=== PATIENT | male | born 1970 | race Asian ===

== ENCOUNTER 2019-11-23 04:37 | Inpatient (IN) ==
[2019-11-23] MEDS ORDERED: ONDANSETRON INJ 2 MG/ML 2 ML VIAL IV STA (05:10)
[2019-11-23] MEDS ORDERED: KETOROLAC 30 MG/ML VIAL IV STA (05:10)
[2019-11-23] MEDS ORDERED: SODIUM CHLORIDE 0.9% 1000ML 1,000 ML IV SCH (05:15)
--- NOTE | 2019-11-23 05:15 | Emergency Department Note ---
Impression & Plan Perforated viscus ED Provider Note NAME: SHANEKA VAIL AGE: 49 SEX: M ARRIVES VIA: Family Vehicle INFORMANT: Patient and life partner ED PROVIDER(S): Tricia Obregon DO CHIEF COMPLAINT: Right lower quadrant abdominal pain and suprapubic abdominal pain PLAN: Disposition: Awaiting evaluation by general surgery-Dr. Martino Condition: Guarded MEDICAL DECISION MAKING: This is a 49-year-old male patient who presents to the emergency department with severe suprapubic abdominal pain, right lower quadrant abdominal pain and right flank pain. The patient's pain started fairly suddenly while playing on his phone. There was some associated nausea but no vomiting. Laboratory studies were fairly unremarkable. CT scan, however, showed evidence of intraperitoneal free air and probable perforated viscus. There was significant gastric wall thickening and stat rad felt this most likely represented a perforated gastric ulcer. I discussed the case with Dr. Martino who will evaluate the patient for further care. Triage Nursing notes reviewed and agree them. Additional history obtained from the patient's partner who is at the bedside and acts as a vegetable trimmer Vital Signs: reviewed and remarkable for hypertension Differential diagnosis: Constipation, small bowel obstruction, pyelonephritis, ureteral colic, ER treatment provided: IV Zofran, IV normal saline solution, IV Toradol, IV Dilaudid, IV Pipracil and/tazobactam Diagnostics interpreted by me: Cardiac Monitoring: Normal sinus rhythm at a rate of 72 Laboratory studies: See below Imaging studies:Per STATRAD CT Abdomen/Pelvis: The liver, spleen, pancreas and gallbladder are normal. The stomach is mildly distended and there is some thickening in the gastric antrum without pneumatosis or focal discontinuity in the gastric wall. Small bowel loops, and appendix appear normal. Adrenals, kidneys, ureters and bladder appear normal. Prostate appears normal. Vascular structures are normal in caliber. Studies positive for free peritoneal air. This is most confluent adjacent to the anterior stomach and liver. Impression: Pre-peritoneal air suggesting perforated viscus. With gastric thickening and focal adjacent air this is likely related to a perforated gastric ulcer Consultation(s): Dr. Martino HPI: 49/M arrives for evaluation of sudden onset of suprapubic abdominal pain and right lower quadrant abdominal pain. [The patient was sitting comfortably playing on his phone when he developed suprapubic abdominal pain and right lower quadrant abdominal pain. Patient also had some associated nausea. He denies ever having pain like this in the past. Patient describes eating pork, yellow peas, and mushrooms around 8 PM last evening and feeling normal afterwards. The pain came on fairly suddenly and was associated with nausea but no vomiting. Most of the history was obtained from the patient's partner who was acting as a vegetable trimmer. He explains that approximately 1 week ago, the patient developed some right sided posterior leg pain for which he started taking a multivitamin. The patient's partner explains that the patient suffers from chronic constipation and has been taking something for it but is unsure what he has been taking. ROS: See above HPI for pertinent positives & negatives. A total of 10 systems reviewed and were otherwise negative. PAST MEDICAL HISTORY:None PAST SURGICAL HISTORY:Patient denies any surgical history FAMILY HISTORY:Patient denies any family history SOCIAL HISTORY:Lives with life partner HOME MEDICATIONS:Multivitamin ALLERGIES:nkda VITALS:See Below PHYSICAL EXAMINATION: HEENT: Head - normocephalic and atraumatic Pupils are equal, round, and reactive to light. Extraocular eye muscles are intact, and sclera are anicteric. Nose - moist nasal mucosa without discharge. Mouth - moist buccal mucosa. Oropharynx is nonerythematous and there is no tonsillar exudate or edema noted. Neck: Supple; no cervical lymphadenopathy. Heart: Regular rate and rhythm. There is a normal S1 and S2 with no murmurs, clicks, or gallops appreciated. Lungs: Clear to auscultation bilaterally with no wheezes, rales, or rhonchi. Abdomen: Moderately distended, pain with palpation in the right lower quadrant, right CVA, and right suprapubic region. There is no guarding, rigidity or rebound. There were normal bowel sounds. Extremities: No evidence of cyanosis, clubbing, or edema. There are easily palpable peripheral pulses. Skin: warm and dry with good turgor and no rashes. ED COURSE: 505: The patient was evaluated in room C 11. A complete history and physical was performed. An order was placed for continuous cardiac monitoring. The patient was in a normal sinus rhythm at a rate of 75. An IV lock was initiated and labs were drawn as above. The patient was given 4 mg of IV Zofran, 1 L of normal saline solution, 30 mg of IV Toradol. The patient will go for CT scan of the abdomen/pelvis. 550: When the patient returned from CAT scan, he was feeling more comfortable. I reviewed some of the preliminary lab tests with the patient. 600: I reviewed the CAT scan results with the patient but I was not certain that the patient or his partner were fully understanding these results and therefore I opted to use the interpreting service. 620: With the help of the bulk pigment reducer, I was able to fully explain the results of the CAT scan laboratory studies with the patient and his partner. The patient did request additional pain meds. He was given 0.5 mg of IV Dilaudid and he was started on Pipracillin and/tazobactam. I have personally spent greater than 45 minutes of critical care time in the direct management of this patient. This includes bedside care, interpretation of diagnostic studies, and testing, discussion with consultants, patient, and family members, and other required patient management activities. This 45 minutes is in excess of all separately billable procedures. Tricia Obregon, DO Past Med/Surg History Social History Feels Safe at Home: Yes Smoking Status: Never smoker Allergies Allergies Allergy/AdvReac Type Severity Reaction Status Date / Time No Known Allergies Allergy Unverified 11/23/19 04:52 Home Meds Home Medications Medication Instructions Recorded Confirmed multivitamin 1 tab PO DAILY 11/23/19 11/23/19 Results & Data (ED) Vital Signs Vital Signs - 24 hr 11/23/19 04:43 11/23/19 05:24 11/23/19 05:47 Temperature 36.7 C Temperature Source Oral Pulse Rate 73 Pulse Rate [Finger] 65 68 Respiratory Rate 20 28 H 20 Respiratory Effort / Characteristics Non-Labored Respiratory Depth Normal Blood Pressure 164/107 H Blood Pressure [Left Arm] 132/93 146/97 H Blood Pressure Mean 126 Blood Pressure Mean [Left Arm] 106 113 Blood Pressure Position Sitting Pulse Oximetry 100 100 99 Oxygen Delivery Method Room Air Room Air Room Air Sepsis Recent Fever Within 48 Hours No Sepsis Action Taken by Nursing No Action Required 11/23/19 06:29 Temperature Temperature Source Pulse Rate Pulse Rate [Finger] 76 Respiratory Rate 20 Respiratory Effort / Characteristics Non-Labored Spontaneous Respiratory Depth Normal Blood Pressure Blood Pressure [Left Arm] 126/78 Blood Pressure Mean Blood Pressure Mean [Left Arm] 94 Blood Pressure Position Pulse Oximetry 98 Oxygen Delivery Method Room Air Sepsis Recent Fever Within 48 Hours Sepsis Action Taken by Nursing Laboratory Data Result diagrams: 11/23/19 05:15 11/23/19 05:15 Lab Results 11/23/19 11/23/19 11/23/19 Range/Units 05:05 05:15 05:15 WBC 12.67 H (4.8-10.8) K/uL RBC 5.09 (4.7-6.1) M/uL Hgb 15.8 (14.0-18.0) g/dL Hct 46.8 (42-52) % MCV 91.9 (80-100) fL MCH 31.0 (25-34) pg MCHC 33.8 (32-36) g/dL RDW Std Deviation 41.8 (36.4-46.3) fL RDW Coeff of Raven 12.4 (11.5-14.5) % Plt Count 226 (130-400) K/uL MPV 11.2 H (7.4-10.4) fL Immature Gran % (Auto) 0.2 % Neut % (Auto) 79.2 % Lymph % (Auto) 12.2 % [place] % (Auto) 7.7 % Eos % (Auto) 0.5 % Baso % (Auto) 0.2 % Immature Gran # (Auto) 0.03 H (0.00-0.02) K/uL Neut # (Auto) 10.04 H (1.4-6.5) K/uL Lymph # (Auto) 1.54 (1.2-3.4) K/uL [place] # (Auto) 0.98 H (0.11-0.59) K/uL Eos # (Auto) 0.06 (0-0.5) K/uL Baso # (Auto) 0.02 (0-0.2) K/uL Sodium 137 (136-145) mmol/L Potassium 4.3 (3.5-5.1) mmol/L Chloride 105 (98-107) mmol/L Carbon Dioxide 28 (21-32) mmol/L Anion Gap 4.0 (3-11) BUN 30 H (7-18) mg/dl Creatinine 1.28 (0.6-1.4) mg/dl Est Cr Clr Drug Dosing 57.3 ml/min Est GFR ( Amer) 75.7 Est GFR (Non-Af Amer) 65.3 BUN/Creatinine Ratio 23.3 H (10-20) Glucose 124 H (70-99) mg/dl Calcium 9.3 (8.5-10.1) mg/dl Total Bilirubin 0.4 (0.2-1) mg/dl AST 34 (15-37) U/L ALT 23 (12-78) U/L Alkaline Phosphatase 74 (45-117) U/L Total Protein 8.3 H (6.4-8.2) gm/dl Albumin 3.6 (3.4-5.0) gm/dl Globulin 4.7 H (2.5-4.0) gm/dl Albumin/Globulin Ratio 0.8 L (0.9-2) Lipase 233 (73-393) U/L Urine Color Dark Yellow Urine Appearance Turbid A (Clear) Urine pH 5.0 (4.5-7.5) Ur Specific [place] 1.034 H (1.000-1.030) Urine Protein 1+ H (Negative) Urine Glucose (UA) Negative (Negative) Urine Ketones Trace H (Negative) Urine Blood Negative (Negative) Urine Nitrite Negative (Negative) Urine Bilirubin Negative (Negative) Urine Urobilinogen Negative (Negative) Ur Leukocyte Esterase Negative (Negative) Urine WBC (Auto) 1-5 (0-5) /hpf Urine RBC (Auto) 10-30 H (0-4) /hpf U Hyaline Cast (Auto) 5-10 H (0-5) /lpf U Epithel Cells (Auto) 10-20 H (0-5) /lpf Urine Bacteria (Auto) Negative (Negative) Urine Crystals Not Reportable Calcium Oxalate Crystal Present A (None Prsent) Administered Medications Piperacillin Sod/Tazobactam Sod (Zosyn) 4.5 gm in 120 mls @ 240 mls/hr IV NOW ONE Stop: 11/23/19 06:50 Last Admin: 11/23/19 06:28 Dose: 240 mls/hr Documented by: [id number] Discontinued Medications Hydromorphone HCl (Dilaudid) 0.5 mg IV NOW STA Stop: 11/23/19 06:22 Last Admin: 11/23/19 06:26 Dose: 0.5 mg Documented by: [id number] Sodium Chloride (Nss 1000ml) 1,000 mls @ 999 mls/hr IV .Q1H1M [place]ILL Stop: 11/23/19 06:15 Last Infusion: 11/23/19 06:22 Dose: 0 mls/hr Documented by: [id number] Admin: 11/23/19 05:16 Dose: 999 mls/hr Documented by: [id number] Ketorolac Tromethamine (Toradol) 30 mg IV NOW STA Stop: 11/23/19 05:11 Last Admin: 11/23/19 05:16 Dose: 30 mg Documented by: [id number] Ondansetron HCl (Zofran) 4 mg IV NOW STA Stop: 11/23/19 05:11 Last Admin: 11/23/19 05:16 Dose: 4 mg Documented by: [id number] Discharge Plan Visit Data Chief Complaint: Abdominal Pain Stated Complaint: ABD PAIN ED Provider: Tricia Obregon Discharge Problem: Perforated viscus Forms Stand Alone Forms: [facility] Prescriptions Prescriptions: No Action multivitamin Tablet 1 tab PO DAILY RF: 0
[2019-11-23 05:23] LABS: Basophils # (auto) 0.02 K/uL (0-0.2); Basophils % (auto) 0.2 %; Eosinophils # (auto) 0.06 K/uL (0-0.5); Eosinophils % (auto) 0.5 %; Hematocrit (blood only) 46.8 % (42-52); Hemoglobin 15.8 g/dL (14.0-18.0); Immature Granulocytes # (auto) 0.03 K/uL (0.00-0.02); Immature Granulocytes % (auto) 0.2 %; Lymphocytes # (auto) 1.54 K/uL (1.2-3.4); Lymphocytes % (auto) 12.2 %; Mean Corpuscular Hgb Conc 33.8 g/dL (32-36); Mean Corpuscular Volume 91.9 fL (80-100); Mean Platelet Volume 11.2 fL (7.4-10.4); Monocytes # (auto) 0.98 K/uL (0.11-0.59); Monocytes % (auto) 7.7 %; Neutrophils # (auto) 10.04 K/uL (1.4-6.5); Neutrophils % (auto) 79.2 %; Platelet Count 226 K/uL (130-400); RDW Coefficient of Variation 12.4 % (11.5-14.5); RDW Standard Deviation 41.8 fL (36.4-46.3); Red Blood Count 5.09 M/uL (4.7-6.1); White Blood Count 12.67 K/uL (4.8-10.8)
[2019-11-23 05:33] LABS: Appearance Urine Turbid (Clear); Bacteria Urine Automated Negative (Negative); Bilirubin Urine Negative (Negative); Blood Urine Negative (Negative); Color Urine Dark Yellow; Glucose Urine UA Negative (Negative); Ketones Urine Trace (Negative); Leukocyte Esterase Urine Negative (Negative); Nitrite Urine Negative (Negative); Protein Urine 1+ (Negative); Specific Gravity Urine 1.034 (1.000-1.030); Urobilinogen Urine Negative (Negative)
[2019-11-23 05:41] LABS: Albumin Level 3.6 gm/dl (3.4-5.0); BUN Creatinine Ratio 23.3 (10-20); Calcium 9.3 mg/dl (8.5-10.1); Creatinine Clr Calc Pharmacy 57.3 ml/min; Est GFR (African American) 75.7; Est GFR (Non-African American) 65.3; Potassium 4.3 mmol/L (3.5-5.1)
[2019-11-23 05:44] LABS: Albumin Globulin Ratio 0.8 (0.9-2); Bilirubin,Total 0.4 mg/dl (0.2-1); Globulin 4.7 gm/dl (2.5-4.0); Total Protein 8.3 gm/dl (6.4-8.2)
[2019-11-23 05:58] LABS: Calcium Oxalate Crystals Urine Present (None Prsent)
[2019-11-23] MEDS ORDERED: HYDROmorphone INJ 0.5 MG/0.5 ML SYR IV STA ×2 (06:21→08:19)
[2019-11-23] MEDS ORDERED: PIPERACILL/TAZOBAC CONSULT ACTIVE PRN ×2 (06:21→12:13)
[2019-11-23] MEDS ORDERED: PIPERACILLIN/TAZOBACTAM 4.5 GM/120 ML BAG IV ONE (06:21)
--- NOTE | 2019-11-23 07:57 | CT Scan Report ---
ABDOMEN AND PELVIS CT WITHOUT CONTRAST CT DOSE: 276.26 mGy.cm HISTORY: Acute right-sided abdominal pain eval for right sided kidney stone TECHNIQUE: Multiaxial CT images of the abdomen and pelvis were performed without contrast. A dose lo wering technique was utilized adhering to the principles of ALARA. COMPARISON STUDY: None. FINDINGS: Minimal right basilar atelectasis. The left lung base is clear. The imaged inferior cardiac chambers are unremarkable. Limited evaluation of the solid abdominal organs without the use of IV contrast. Wi thin the limitations of the study the spleen, pancreas, adrenal glands and liver appear unremarkable. Mild gallbladder wall thickening with partial distention. Kidneys are unremarkable. No renal or ureteral calculi or obstructive uropathy. Partially decompresse d urinary bladder with wall thickening. The prostate is prominent in size. Aorta and IVC are unremark able. There is no adenopathy. Moderate upper abdominal intraperitoneal free air with trace abdominal ascites. There is wall thickening of the distal stomach and proximal duodenum with a focal saccular o utpouching measuring approximately 1.9 cm on image 135 series 3 involving the region of the pyloric d uodenal junction. No drainable fluid collection. No pneumatosis. Moderate fecal retention. The visual ized appendix appears noninflamed. Soft tissues are unremarkable. Bones appear intact. IMPRESSION: 1. Moderate intraperitoneal free air compatible with perforated viscus. Additionally, there is wall t hickening of the pylorus, antrum and proximal duodenum with surrounding inflammatory stranding and tr aquiles ascites. Saccular outpouching with adjacent free air involves the pylorus/duodenal junction sugge stive of perforated ulcer. Surgical consultation is needed. 2. No drainable fluid collection. 3. No bowel obstruction. ACT 112: Negative or not required by law. The above report was generated using voice recognition software. It may contain grammatical, syntax o r spelling errors. Electronically signed by: Jayce Cunningham M.D. 11/23/2019 7:55 AM
[2019-11-23] MEDS: SODIUM CHLORIDE 0.9% 500 ML IV SCH ×4 (08:22→20:48)
--- NOTE | 2019-11-23 08:34 | Anesthesiology Consultation ---
Date of Service November 23, 2019 Assessment & Plan (1) Encounter for pre-operative examination: Chart Review Chart Review: Acceptable Risk for Surgery Consults Requested none ASA [id number] Proposed Anesthesia Anesthesia Type: General Risk / Benefits Reviewed With: PT / POA / Parent / Guardian, Accepts Plan and Informed Consent Obtained History Surgery Operation Date: 11/23/19 09:00 Proposed Procedures p Exploratory Laparotomy - Slick Martino MD Height/Weight Height: 5 ft 8 in Weight: 58 kg Allergies Allergy/AdvReac Type Severity Reaction Status Date / Time No Known Allergies Allergy Unverified 11/23/19 04:52 Medications Home Medications Medication Instructions Recorded Confirmed Last Taken multivitamin 1 tab PO DAILY 11/23/19 11/23/19 Unknown Active Medications Generic Name Dose Route Start Last Admin Trade Name Freq PRN Reason Stop Dose Admin Sodium Chloride 500 mls @ 125 mls/hr 11/23/19 06:45 11/23/19 08:22 Nss IV 12/23/19 06:44 125 mls/hr .Q4H HILL Administration NPO Date Last Intake of Fluids: 11/23/19 Time Last Intake of Fluids: 03:00 Date Last Intake of Solids: 11/22/19 Time Last Intake of Solids: 20:00 Exercise / Class Metabolic Activity II 4-5 Yardwork/Stairs/Walk up hill Past Anesthesia History No Hx of Anesthesia Complications and No Family Hx of Anesthesia Complications History of PONV No Hx of PONV and No Hx of Motion Sickness Social History Smoking Status: Never smoker Physical Exam Vital Signs Last Vital Signs Temp 98.1 F 11/23/19 04:43 Pulse 83 11/23/19 08:00 Resp 20 11/23/19 08:00 BP 132/77 11/23/19 08:00 Pulse Ox 97 11/23/19 08:00 ENMT Mouth: no dentition abnormality Thyromental Distance: > or= 3.5 Finger Breadths Mallampati Class: II Neck normal visual inspection Respiratory normal respiratory effort Auscultation: lungs clear to auscultation bilaterally Cardiovascular Rate/Rhythm: regular rate and regular rhythm Testing Laboratory Results 11/23/19 05:15 11/23/19 05:15 Urine Color Dark Yellow 11/23/19 05:05 Urine Appearance Turbid (Clear) A 11/23/19 05:05 Urine pH 5.0 (4.5-7.5) 11/23/19 05:05 Ur Specific [place] 1.034 (1.000-1.030) H 11/23/19 05:05 Urine Protein 1+ (Negative) H 11/23/19 05:05 Urine Glucose (UA) Negative (Negative) 11/23/19 05:05 Urine Ketones Trace (Negative) H 11/23/19 05:05 Urine Nitrite Negative (Negative) 11/23/19 05:05 Ur Leukocyte Esterase Negative (Negative) 11/23/19 05:05 Urine WBC (Auto) 1-5 /hpf (0-5) 11/23/19 05:05 Urine RBC (Auto) 10-30 /hpf (0-4) H 11/23/19 05:05 U Hyaline Cast (Auto) 5-10 /lpf (0-5) H 11/23/19 05:05 U Epithel Cells (Auto) 10-20 /lpf (0-5) H 11/23/19 05:05 Urine Bacteria (Auto) Negative (Negative) 11/23/19 05:05
[2019-11-23] MEDS ORDERED: ROCURONIUM BROMIDE 10 MG/ML 5 ML VIAL ONE ×2 (08:35→09:46)
[2019-11-23] MEDS ORDERED: fentaNYL citrate 100 MCG/2 ML VIAL ONE ×3 (08:48→11:12)
--- NOTE | 2019-11-23 08:49 | History & Physical Report ---
Date of Service November 23, 2019 Assessment & Plan (1) Perforated viscus: This patient has free air with abdominal pain and peritonitis consistent with perforated viscus. By CAT scan it appears to be in the antrum or duodenum. I explained that to the patient through the church history professor. I explained the planned operation of exploratory laparotomy with closure of the ulcer but the possibility of requiring a partial gastrectomy was also explained. I explained the possible complications. He had multiple questions that I answered. He has signed a consent form. History of Present Illness Primary Care Provider: NO PCP This is a 49-year-old male who presented to the emergency room with a complaint of abdominal pain. He was accompanied by his life partner. The patient speaks only Mandarin. The life partner speaks some Kyrgyz. The interview exam and explanation were all performed with the use of the [employer] translation system. The patient developed the acute onset of abdominal pain at about 3:00 this morning. It was more in the upper abdomen and in the periumbilical region. He has never had pain like this before. He had nausea but did not vomit. He had no change in his bowel habits which consist of chronic constipation. He had no fever. The pain has persisted and increased in intensity. He has no previous history of upper GI disorders. He does not take antacids. He has not had any weight loss. Allergies Allergy/AdvReac Type Severity Reaction Status Date / Time No Known Allergies Allergy Unverified 11/23/19 04:52 Home Medications Home Medications Medication Instructions Recorded Confirmed Type multivitamin 1 tab PO DAILY 11/23/19 11/23/19 History Past Med/Surg History Social History Feels Safe at Home: Yes Smoking Status: Never smoker Review of Systems Review of Systems: All systems reviewed & are unremarkable except as noted in HPI & below Physical Exam Constitutional: no acute distress Respiratory: normal respiratory effort, lungs clear to auscultation Cardiovascular: Rate/Rhythm: regular rate and regular rhythm Gastrointestinal (Abdomen): normal bowel sounds, soft, nontender, no hepatosplenomegaly Inspection/Auscultation: abdomen not distended Percussion/Palpation: + abdomen tender (Throughout his abdomen but mostly upper and periumbilical regions, he is a stoic individual and was not reporting pain voluntarily. He did have involuntary guarding.) and abdomen soft Skin: no rashes, warm and dry Lymphatic: no cervical lymphadenopathy Results & Data Results & Data ([place]) Vital Signs (Past 12 Hours) Vital Signs Temp Pulse Pulse Resp BP BP Pulse Ox 11/23/19 08:41 88 20 132/77 99 11/23/19 08:00 83 20 132/77 97 11/23/19 07:13 78 18 125/71 98 11/23/19 06:29 76 20 126/78 98 11/23/19 05:47 68 20 146/97 H 99 11/23/19 05:24 65 28 H 132/93 100 11/23/19 04:43 36.7 C 73 20 164/107 H 100 Laboratory Results 11/23/19 11/23/19 11/23/19 Range/Units 08:36 08:36 05:15 WBC (4.8-10.8) K/uL RBC (4.7-6.1) M/uL Hgb (14.0-18.0) g/dL Hct (42-52) % MCV (80-100) fL MCH (25-34) pg MCHC (32-36) g/dL RDW Std Deviation (36.4-46.3) fL RDW Coeff of Raven (11.5-14.5) % Plt Count (130-400) K/uL MPV (7.4-10.4) fL Immature Gran % (Auto) % Neut % (Auto) % Lymph % (Auto) % [place] % (Auto) % Eos % (Auto) % Baso % (Auto) % Immature Gran # (Auto) (0.00-0.02) K/uL Neut # (Auto) (1.4-6.5) K/uL Lymph # (Auto) (1.2-3.4) K/uL [place] # (Auto) (0.11-0.59) K/uL Eos # (Auto) (0-0.5) K/uL Baso # (Auto) (0-0.2) K/uL PT Pending INR Pending Sodium 137 (136-145) mmol/L Potassium 4.3 (3.5-5.1) mmol/L Chloride 105 (98-107) mmol/L Carbon Dioxide 28 (21-32) mmol/L Anion Gap 4.0 (3-11) BUN 30 H (7-18) mg/dl Creatinine 1.28 (0.6-1.4) mg/dl Est Cr Clr Drug Dosing 57.3 ml/min Est GFR ( Amer) 75.7 Est GFR (Non-Af Amer) 65.3 BUN/Creatinine Ratio 23.3 H (10-20) Glucose 124 H (70-99) mg/dl Calcium 9.3 (8.5-10.1) mg/dl Total Bilirubin 0.4 (0.2-1) mg/dl AST 34 (15-37) U/L ALT 23 (12-78) U/L Alkaline Phosphatase 74 (45-117) U/L Total Protein 8.3 H (6.4-8.2) gm/dl Albumin 3.6 (3.4-5.0) gm/dl Globulin 4.7 H (2.5-4.0) gm/dl Albumin/Globulin Ratio 0.8 L (0.9-2) Lipase 233 (73-393) U/L Urine Color Urine Appearance (Clear) Urine pH (4.5-7.5) Ur Specific [place] (1.000-1.030) Urine Protein (Negative) Urine Glucose (UA) (Negative) Urine Ketones (Negative) Urine Blood (Negative) Urine Nitrite (Negative) Urine Bilirubin (Negative) Urine Urobilinogen (Negative) Ur Leukocyte Esterase (Negative) Urine WBC (Auto) (0-5) /hpf Urine RBC (Auto) (0-4) /hpf U Hyaline Cast (Auto) (0-5) /lpf U Epithel Cells (Auto) (0-5) /lpf Urine Bacteria (Auto) (Negative) Urine Crystals Calcium Oxalate Crystal (None Prsent) Blood Type Pending Antibody Screen Pending 11/23/19 11/23/19 Range/Units 05:15 05:05 WBC 12.67 H (4.8-10.8) K/uL RBC 5.09 (4.7-6.1) M/uL Hgb 15.8 (14.0-18.0) g/dL Hct 46.8 (42-52) % MCV 91.9 (80-100) fL MCH 31.0 (25-34) pg MCHC 33.8 (32-36) g/dL RDW Std Deviation 41.8 (36.4-46.3) fL RDW Coeff of [place] 12.4 (11.5-14.5) % Plt Count 226 (130-400) K/uL MPV 11.2 H (7.4-10.4) fL Immature Gran % (Auto) 0.2 % Neut % (Auto) 79.2 % Lymph % (Auto) 12.2 % [place] % (Auto) 7.7 % Eos % (Auto) 0.5 % Baso % (Auto) 0.2 % Immature Gran # (Auto) 0.03 H (0.00-0.02) K/uL Neut # (Auto) 10.04 H (1.4-6.5) K/uL Lymph # (Auto) 1.54 (1.2-3.4) K/uL [place] # (Auto) 0.98 H (0.11-0.59) K/uL Eos # (Auto) 0.06 (0-0.5) K/uL Baso # (Auto) 0.02 (0-0.2) K/uL PT INR Sodium (136-145) mmol/L Potassium (3.5-5.1) mmol/L Chloride (98-107) mmol/L Carbon Dioxide (21-32) mmol/L Anion Gap (3-11) BUN (7-18) mg/dl Creatinine (0.6-1.4) mg/dl Est Cr Clr Drug Dosing ml/min Est GFR ( Amer) Est GFR (Non-Af Amer) BUN/Creatinine Ratio (10-20) Glucose (70-99) mg/dl Calcium (8.5-10.1) mg/dl Total Bilirubin (0.2-1) mg/dl AST (15-37) U/L ALT (12-78) U/L Alkaline Phosphatase (45-117) U/L Total Protein (6.4-8.2) gm/dl Albumin (3.4-5.0) gm/dl Globulin (2.5-4.0) gm/dl Albumin/Globulin Ratio (0.9-2) Lipase (73-393) U/L Urine Color Dark Yellow Urine Appearance Turbid A (Clear) Urine pH 5.0 (4.5-7.5) Ur Specific [place] 1.034 H (1.000-1.030) Urine Protein 1+ H (Negative) Urine Glucose (UA) Negative (Negative) Urine Ketones Trace H (Negative) Urine Blood Negative (Negative) Urine Nitrite Negative (Negative) Urine Bilirubin Negative (Negative) Urine Urobilinogen Negative (Negative) Ur Leukocyte Esterase Negative (Negative) Urine WBC (Auto) 1-5 (0-5) /hpf Urine RBC (Auto) 10-30 H (0-4) /hpf U Hyaline Cast (Auto) 5-10 H (0-5) /lpf U Epithel Cells (Auto) 10-20 H (0-5) /lpf Urine Bacteria (Auto) Negative (Negative) Urine Crystals Not Reportable Calcium Oxalate Crystal Present A (None Prsent) Blood Type Antibody Screen Diagnostic Findings ABDOMEN AND PELVIS CT WITHOUT CONTRAST CT DOSE: 276.26 mGy.cm HISTORY: Acute right-sided abdominal pain eval for right sided kidney stone TECHNIQUE: Multiaxial CT images of the abdomen and pelvis were performed without contrast. A dose lowering technique was utilized adhering to the principles of ALARA. COMPARISON STUDY: None. FINDINGS: Minimal right basilar atelectasis. The left lung base is clear. The imaged inferior cardiac chambers are unremarkable. Limited evaluation of the solid abdominal organs without the use of IV contrast. Within the limitations of the study the spleen, pancreas, adrenal glands and liver appear unremarkable. Mild gallbladder wall thickening with partial distention. Kidneys are unremarkable. No renal or ureteral calculi or obstructive uropathy. Partially decompressed urinary bladder with wall thickening. The prostate is prominent in size. Aorta and IVC are unremarkable. There is no adenopathy. Moderate upper abdominal intraperitoneal free air with trace abdominal ascites. There is wall thickening of the distal stomach and proximal duodenum with a focal saccular outpouching measuring approximately 1.9 cm on image 135 series 3 involving the region of the pyloric duodenal junction. No drainable fluid collection. No pneumatosis. Moderate fecal retention. The visualized appendix appears noninflamed. Soft tissues are unremarkable. Bones appear intact. IMPRESSION: 1. Moderate intraperitoneal free air compatible with perforated viscus. Additionally, there is wall thickening of the pylorus, antrum and proximal duodenum with surrounding inflammatory stranding and trace ascites. Saccular outpouching with adjacent free air involves the pylorus/duodenal junction short ggestive of perforated ulcer. Surgical consultation is needed. 2. No drainable fluid collection. 3. No bowel obstruction.
[2019-11-23] MEDS ORDERED: HYDROmorphone INJ 1 MG/ML SYRINGE IV PRN (08:53)
[2019-11-23] MEDS ORDERED: ePHEDrine sulfate 50 MG/ML AMP IV PRN (08:53)
[2019-11-23] MEDS ORDERED: fentaNYL citrate 100 MCG/2 ML VIAL IV PRN (08:53)
[2019-11-23] MEDS ORDERED: ROCURONIUM BROMID 50MG/5ML SYR ONE (08:53)
[2019-11-23] MEDS ORDERED: ATROPINE SULFATE 0.1 MG/ML 10ML SYR IV PRN (08:53)
[2019-11-23] MEDS ORDERED: ACETAMINOPHEN 1000 MG/100 ML IV IV ONE (08:53)
[2019-11-23] MEDS ORDERED: ALBUMIN HUMAN 5% 12.5 GM/250 ML VIAL IV ONE (08:54)
[2019-11-23] MEDS ORDERED: MIDAZOLAM HCL 1 MG/ML 2ML VIAL ONE (08:55)
[2019-11-23] MEDS ORDERED: LIDOCAINE HCL 2% 2 ML VIAL/AMP(20MG/ML) INFIL ONE (09:01)
[2019-11-23] MEDS ORDERED: PROPOFOL IV EMULSION 10 MG/ML 20 ML VIAL IV ONE (09:01)
[2019-11-23] MEDS ORDERED: DEXAMETHASONE SOD INJ 4 MG/ML VIAL ONE (09:01)
[2019-11-23] MEDS ORDERED: ONDANSETRON INJ 2 MG/ML 2 ML VIAL ONE ×2 (09:01→10:13)
[2019-11-23] MEDS ORDERED: KETAMINE HCL INJ 50 MG/ML 10 ML VIAL ONE (09:48)
--- NOTE | 2019-11-23 10:10 | Electrocardiogram Report ---
Test Reason : Blood Pressure : / mmHG Vent. Rate : 087 BPM Atrial Rate : 087 BPM P-R Int : 144 ms QRS Dur : 082 ms QT Int : 362 ms P-R-T Axes : 079 089 036 degrees QTc Int : 435 ms Normal sinus rhythm Left atrial enlargement Borderline ECG No previous ECGs available Confirmed by Bryan Shea ([id number]) on 11/23/2019 10:10:36 AM Referred By: REFERRED SELF Confirmed By:Bryan Shea
[2019-11-23] MEDS ORDERED: NEOSTIGMINE METHYLSULFATE 5 MG/5 ML SYR ONE (10:11)
[2019-11-23] MEDS ORDERED: GLYCOPYRROLATE 0.2 MG/ML VIAL ONE (10:11)
--- NOTE | 2019-11-23 10:39 | Post Operative Brief Note ---
Immediate Post Op Note v1 Date of Surgery November 23, 2019 Pre & Post Diagnosis Operation Date: 11/23/19 09:00 Pre-Op Diagnosis: Abdominal pain Post-Op Diagnosis: Perforated duodenal ulcer I identified the patient and participated in the time-out.: Yes Procedure Operation Date: 11/23/19 09:00 Actual Procedures p Exploratory Laparotomy with oversewing of perforated duodenal ulcer, Yfn patch(Not Applicable) - Slick Martino MD Surgeon Slick Martino MD Tumblers Supervisor None Estimated Blood Loss 10 Findings Consistent with Post-Op Diagnosis Drains Freitas Catheter (16 fr freitas catheter inserted without difficulty by Mariana Browne RN. Clear yellow fluid for return) and Casimiro-Mead Drain (10fr flat)
--- NOTE | 2019-11-23 11:08 | Anesthesiology Progress Note ---
Date of Service November 23, 2019 Anesthesia Post Procedure Vital Signs Vital Signs: Temp Pulse Pulse Pulse Resp BP BP 11/23/19 10:50 78 16 130/73 11/23/19 10:41 97.5 F L 77 12 127/66 11/23/19 08:44 20 132/77 11/23/19 08:41 88 20 132/77 11/23/19 08:00 83 20 132/77 11/23/19 07:13 78 18 125/71 11/23/19 06:29 76 20 126/78 11/23/19 05:47 68 20 146/97 H 11/23/19 05:24 65 28 H 132/93 11/23/19 04:43 98.1 F 73 20 164/107 H Pulse Ox 11/23/19 10:50 100 11/23/19 10:41 100 11/23/19 08:44 99 11/23/19 08:41 99 11/23/19 08:00 97 11/23/19 07:13 98 11/23/19 06:29 98 11/23/19 05:47 99 11/23/19 05:24 100 11/23/19 04:43 100 Pain Intensity Right Abdomen: Pain Intensity: 6 Transfer of Care Handoff Completed per policy Notes Mental Status: alert / awake / arousable and participated in evaluation Patient Amnestic to Procedure: Yes Nausea / Vomiting: adequately controlled Pain: adequately controlled Airway Patency, RR, SpO2: stable & adequate BP & HR: stable & adequate Hydration State: stable & adequate Anesthetic Complications: no major complications apparent and Pt Satisfied with anesthetic care
--- NOTE | 2019-11-23 11:11 | Operative Report (OR) ---
DATE OF OPERATION: 11/23/2019 PREOPERATIVE DIAGNOSIS: Perforated viscus. POSTOPERATIVE DIAGNOSIS: Perforated duodenal ulcer. PROCEDURE: Exploratory laparotomy with oversewing of perforated duodenal ulcer and placement of Yfn patch. SURGEON: Slick Martino MD. FINDINGS: The patient had a moderate amount of fluid within the abdomen, most of it in the right upper quadrant above the liver. There was no solid food identified. The patient had a 6 mm perforation of the duodenum just beyond the pylorus. The wall was thickened there. The stomach appeared normal, but there was some thickening in the prepyloric area. There was no gastric ulcer identified. There was free air identified in the abdomen. There were no other abnormalities identified. TECHNIQUE: The patient was given a general anesthetic and the area was prepped and draped in the usual sterile fashion. Vertical midline incision was made in the upper abdomen above the umbilicus. It was carried down through the subcutaneous tissue to the fascia. The fascia was opened in the midline. There was air within the abdomen. The abdomen was explored with findings as above. The fluid above the liver was removed. The ulcer was identified. The ulcer was closed with interrupted 2-0 silk sutures. The abdomen was then irrigated with a copious amount of saline solution and removed. A separate stab incision was made on the right side of the abdomen, through which a 10 mm Casimiro-Mead was brought. It was secured with 3-0 nylon and left at the side. The omentum was then brought up over the area of the ulcer and secured using the limbs of the suture that had been used to close the defect. The drain was then placed inferior to the duodenum. The area was inspected for bleeding, none was seen. The fascia was closed with running #1 PDS and the skin was closed with gareth, but prior to closing the skin, a quarter-inch Casimiro-Mead was placed in the subcutaneous tissue and secured at each end with 3-0 nylon. Estimated blood loss was 10 mL. Sponge, needle and instrument counts were correct prior to closure. The skin was cleansed, dried, and a dressing was placed. I attest to the content of the Intraoperative Record and any orders documented therein. Any exception s are noted below.
[2019-11-23] MEDS ORDERED: ONDANSETRON INJ 2 MG/ML 2 ML VIAL IV PRN (12:13)
[2019-11-23] MEDS: PIPERACILLIN/TAZOBACTAM 3.375 GM in DEXTROSE 5% 100 ML IV SCH ×2 (13:21→21:37)
[2019-11-23] MEDS: MoRPHine SULFATE 4 MG/ML 1 ML CARP\\VIAL IV PRN ×2 (15:28→23:34)
[2019-11-23] MEDS ORDERED: PANTOPRAZOLE BOLUS/DRIP 1 EA IV STA (18:14)
[2019-11-23] MEDS: PANTOprazole 40 MG in DEXTROSE 5% 100 ML IV SCH ×2 (19:07→23:33)
[2019-11-24] MEDS: SODIUM CHLORIDE 0.9% 500 ML IV SCH ×7 (00:07→21:07)
[2019-11-24] MEDS: MoRPHine SULFATE 4 MG/ML 1 ML CARP\\VIAL IV PRN ×3 (03:35→22:07)
[2019-11-24] MEDS: PANTOprazole 40 MG in DEXTROSE 5% 100 ML IV SCH ×5 (03:38→23:47)
[2019-11-24] MEDS: PIPERACILLIN/TAZOBACTAM 3.375 GM in DEXTROSE 5% 100 ML IV SCH ×3 (05:33→21:05)
--- NOTE | 2019-11-24 07:20 | Ultrasound Report ---
US venous doppler LE RT CLINICAL HISTORY: RIGHT CALF PAIN COMPARISON STUDY: No previous studies for comparison. FINDINGS: Real-time and color flow Doppler imaging were performed. Flow was seen within the femoral, popliteal and calf veins with no intraluminal thrombus demonstrated. The saphenous vein is patent. IMPRESSION: No evidence of right lower extremity DVT. ACT 112: Negative or not required by law. Electronically signed by: Karson Toth M.D. 11/24/2019 7:19 AM
--- NOTE | 2019-11-24 12:18 | Surgery Progress Note ---
Date of Service November 24, 2019 Assessment & Plan (1) Perforated viscus: From the surgical standpoint he is doing well. Would continue NG for now. He can have some swabs for his mouth. We will also start him on Lovenox. He likes compression of the leg that helps with his pain so we will use thigh-high teds. The etiology of his lower extremity discomfort is unclear. He did describe a sciatica-like pain prior to the leg pain. Consider MRI of the lumbar spine if this persists Encouraged him to get out of bed and ambulate in the room with assistance He can brush his teeth Subjective Visit was performed using [employer] service Postoperative day #1 status post exploratory laparotomy with closure of perforated duodenal ulcer Having mild abdominal discomfort His most traumatic complaint is pain in the right leg. He had been having that prior to the onset of the abdominal pain and that is been going on for a few weeks Denies nausea and vomiting Yony has had 70 cc of serosanguineous drainage out since surgery Physical Exam Gastrointestinal (Abdomen): Inspection/Auscultation: + abdomen distended (Mild) and + abdominal surgical incision (Clean, dry and intact) Percussion/Palpation: + abdomen tender (Incisional only) and abdomen soft Results & Data Vital Signs (Past 12 Hours) Vital Signs Temp Pulse Resp BP BP Pulse Ox 11/24/19 08:00 37.0 C 76 18 124/77 95 11/24/19 03:14 37.3 C 77 18 126/82 96 11/24/19 02:44 37.1 C 67 20 125/84 95 Diagnostic Findings Venous Doppler of right lower extremity demonstrates no evidence of DVT
[2019-11-24] MEDS: ENOXAPARIN INJ 30 MG/0.3 ML SYR SQ SCH (12:42)
[2019-11-25] MEDS: SODIUM CHLORIDE 0.9% 1000ML 1,000 ML IV SCH ×4 (02:28→23:31)
[2019-11-25] MEDS: MoRPHine SULFATE 4 MG/ML 1 ML CARP\\VIAL IV PRN ×3 (02:39→23:34)
[2019-11-25] MEDS: PIPERACILLIN/TAZOBACTAM 3.375 GM in DEXTROSE 5% 100 ML IV SCH ×3 (04:52→20:13)
[2019-11-25] MEDS: PANTOprazole 40 MG in DEXTROSE 5% 100 ML IV SCH ×4 (04:53→21:22)
[2019-11-25 06:15] LABS: BUN Creatinine Ratio 11.6 (10-20); Calcium 8.5 mg/dl (8.5-10.1); Creatinine Clr Calc Pharmacy 65.5 ml/min; Est GFR (African American) 88.9; Est GFR (Non-African American) 76.7; Potassium 3.6 mmol/L (3.5-5.1)
[2019-11-25 06:26] LABS: Basophils # (auto) 0.01 K/uL (0-0.2); Basophils % (auto) 0.1 %; Eosinophils # (auto) 0.12 K/uL (0-0.5); Eosinophils % (auto) 1.4 %; Hematocrit (blood only) 36.8 % (42-52); Hemoglobin 11.9 g/dL (14.0-18.0); Immature Granulocytes # (auto) 0.02 K/uL (0.00-0.02); Immature Granulocytes % (auto) 0.2 %; Lymphocytes # (auto) 1.32 K/uL (1.2-3.4); Lymphocytes % (auto) 15.8 %; Mean Corpuscular Hemoglobin 29.8 pg (25-34); Mean Corpuscular Hgb Conc 32.3 g/dL (32-36); Mean Platelet Volume 10.8 fL (7.4-10.4); Monocytes # (auto) 0.94 K/uL (0.11-0.59); Monocytes % (auto) 11.2 %; Neutrophils # (auto) 5.96 K/uL (1.4-6.5); Neutrophils % (auto) 71.3 %; Platelet Count 185 K/uL (130-400); RDW Coefficient of Variation 12.4 % (11.5-14.5); RDW Standard Deviation 42.2 fL (36.4-46.3); White Blood Count 8.37 K/uL (4.8-10.8)
[2019-11-25] MEDS: ENOXAPARIN INJ 30 MG/0.3 ML SYR SQ SCH (08:25)
--- NOTE | 2019-11-25 10:40 | Surgery Progress Note ---
Date of Service November 25, 2019 Assessment & Plan (1) Perforated viscus: Doing well from surgical standpoint Continue NG until tomorrow We will get Gastrografin study tomorrow to be sure there is no gastric outlet obstruction and to be sure there is no continuing leak. If that study has acce ptable resolved can remove the NG and begin clear liquids. Continue antibiotics (2) Right leg pain: Etiology of the right leg pain not been determined. There is no evidence of DVT. There is no evidence of ischemia. This is reminiscent of radicular pain. Cannot do MRI due to the abdominal gareth. We will get a CT scan of the lumbar spine Subjective Postoperative day #2 status post repair of perforated duodenal ulcer Visit conducted with the help of Dr. Hurtado's translation Does not complain of abdominal pain Has no nausea or vomiting Continues to complain of right leg pain especially in the calf region. Does not want to take pain medicine RAINA had 70 cc out yesterday and 60 out last shift and is all serosanguineous Physical Exam Gastrointestinal (Abdomen): Inspection/Auscultation: + abdomen distended and + abdominal surgical incision (Clean, dry and intact) Percussion/Palpation: + abdomen tender (Incisional only ); + abdomen not soft Musculoskeletal: Right leg continues to be soft and not tender with 3+ pulses Results & Data Vital Signs (Past 12 Hours) Vital Signs Temp Pulse Resp BP BP Pulse Ox 11/25/19 08:14 37.1 C 74 18 127/76 92 11/24/19 23:17 37.5 C 70 16 113/72 93
--- NOTE | 2019-11-25 11:46 | CT Scan Report ---
LUMBAR SPINE CT CT DOSE: 256.82 mGycm HISTORY: radicular pain right leg TECHNIQUE: Multiaxial CT images of the lumbar spine were performed and reformatted in the sagittal an d coronal plane without the use of contrast. A dose lowering technique was utilized adhering to the principles of ALARA. COMPARISON: Abdomen and pelvis CT 11/23/2019. FINDINGS: No fracture or subluxation within the lumbar spine. The visualized sacrum is intact. Disc s paces are preserved. Paravertebral soft tissues are unremarkable. L1-L2: No significant central canal or neural foraminal narrowing. L2-L3: No significant central canal or neural foraminal narrowing. L3-L4: No significant central canal or neural foraminal narrowing. L4-L5: Small broad-based posterior disc bulge without significant central canal or neural foraminal n arrowing. L5-S1: There is a small right paracentral focal disc protrusion best seen on axial image 243. This ab uts and displaces the transiting right S1 nerve root. However, there is no significant central canal narrowing at this level. There is moderate right-sided neural foraminal narrowing. IMPRESSION: 1. No fractures of fixation within the lumbar spine. 2. A right paracentral focal disc protrusion at L5-S1 which abuts and slightly displaces the transiti ng right S1 nerve root. This also results in moderate right-sided neural foraminal narrowing. ACT 112: Negative or not required by law. Electronically signed by: Markus Amaya M.D. 11/25/2019 11:45 AM
[2019-11-26] MEDS: PANTOprazole 40 MG in DEXTROSE 5% 100 ML IV SCH ×5 (02:05→23:03)
[2019-11-26] MEDS: PIPERACILLIN/TAZOBACTAM 3.375 GM in DEXTROSE 5% 100 ML IV SCH ×3 (06:09→21:03)
[2019-11-26] MEDS: SODIUM CHLORIDE 0.9% 1000ML 1,000 ML IV SCH (06:46)
[2019-11-26 06:57] LABS: Basophils # (auto) 0.02 K/uL (0-0.2); Basophils % (auto) 0.3 %; Eosinophils # (auto) 0.13 K/uL (0-0.5); Eosinophils % (auto) 1.7 %; Hematocrit (blood only) 35.6 % (42-52); Hemoglobin 11.8 g/dL (14.0-18.0); Immature Granulocytes # (auto) 0.02 K/uL (0.00-0.02); Immature Granulocytes % (auto) 0.3 %; Lymphocytes # (auto) 1.28 K/uL (1.2-3.4); Lymphocytes % (auto) 17.1 %; Mean Corpuscular Hemoglobin 30.3 pg (25-34); Mean Corpuscular Hgb Conc 33.1 g/dL (32-36); Mean Corpuscular Volume 91.3 fL (80-100); Mean Platelet Volume 10.6 fL (7.4-10.4); Monocytes # (auto) 0.85 K/uL (0.11-0.59); Monocytes % (auto) 11.3 %; Neutrophils # (auto) 5.19 K/uL (1.4-6.5); Neutrophils % (auto) 69.3 %; Platelet Count 214 K/uL (130-400); RDW Coefficient of Variation 12.1 % (11.5-14.5); RDW Standard Deviation 40.7 fL (36.4-46.3); White Blood Count 7.49 K/uL (4.8-10.8)
[2019-11-26 07:28] LABS: BUN Creatinine Ratio 13.7 (10-20); Calcium 8.4 mg/dl (8.5-10.1); Creatinine Clr Calc Pharmacy 78.8 ml/min; Est GFR (African American) 111.3; Est GFR (Non-African American) 96.1; Potassium 3.4 mmol/L (3.5-5.1)
--- NOTE | 2019-11-26 09:13 | Fluoroscopy Report ---
[place] GI series CLINICAL HISTORY: with GASTROGRAFIN via NGT, r/o gastric leak. Postop. The duodenal ulceration. COMPARISON STUDY: Abdomen and pelvis CT 11/23/2019. FLUOROSCOPY TIME: 1.7 minutes. 174 fluoroscopic images submitted. FINDINGS: Water-soluble contrast was injected through the indwelling nasogastric tube. Contrast fills the stomach and duodenum to the third portion. No extraluminal contrast to suggest a leak. There is no contrast within the indwelling drains. Midline skin gareth are noted. IMPRESSION: No extraluminal contrast to suggest a leak. ACT 112: Negative or not required by law. Electronically signed by: Markus Amaya M.D. 11/26/2019 9:12 AM
[2019-11-26] MEDS: ENOXAPARIN INJ 30 MG/0.3 ML SYR SQ SCH (09:40)
[2019-11-26] MEDS ORDERED: OXYCODONE/ACETAMINOPHEN 5mg/325mg TAB PO PRN ×2 (13:09)
--- NOTE | 2019-11-26 13:13 | Surgery Progress Note ---
Date of Service November 26, 2019 Assessment & Plan (1) Perforated viscus: POD # 3 s/p ex lap repair of perforated duodenal ulcer with grahm patch avss upper GI study with no evidence of leak or gastric outlet obstruction postop pain controlled Plan: Discontinue NGT Start clear liquids slowly Change IV fluids to D5 1/2 NS + 20 kcl @ 85 mls/hr Continue IV Zosyn Continue IV Protonix PO Percocet prn pain and IV Morphine for breakthrough increase activity, ambulate in hallway Continue SCDs and lovenox Incentive spirometry (2) Right leg pain: Lumbar CT scan showing right paracentral focal disc protrusion at L5-S1 which abuts and slightly displaces the transiting right S1 nerve root Results in moderate right sided neural foraminal narrowing. Dr. Hurtado discussed results with patient Right leg into calf pain still persists Will consult Dr. Rainey for further recommendations in regards to surgery or conservative measures for now. Discussed imaging results with Dr. Rainey over phone this morning. Either surgery or pain management to get him through this acute phase recommended. Discussed with Dr. Martino who believes patient could undergo orthopedic procedure if necessary/patient preference at this time. Dr. Hurtado has seen and examined pt, agrees with above. Subjective ROS obtained with help of Dr. Hurtado's translation no abdominal pain, no nausea or vomiting still having right leg pain Physical Exam Constitutional: WD/WN, vitals as above no acute distress Respiratory: normal respiratory effort; no respiratory distress Gastrointestinal (Abdomen): Inspection/Auscultation: abdomen normal to inspection and + abdominal surgical drain present (Hussein drain with serosanguineous output); abdomen not distended NGT with bilious output, minimal Skin: no rashes, warm and dry Psychiatric: A+Ox3, euthymic affect Results & Data Vital Signs (Past 12 Hours) Vital Signs Temp Pulse Resp BP Pulse Ox 11/26/19 08:13 36.9 C 71 18 138/83 95 Laboratory Results 11/26/19 11/26/19 Range/Units 06:26 06:26 WBC 7.49 (4.8-10.8) K/uL RBC 3.90 L (4.7-6.1) M/uL Hgb 11.8 L (14.0-18.0) g/dL Hct 35.6 L (42-52) % MCV 91.3 (80-100) fL MCH 30.3 (25-34) pg MCHC 33.1 (32-36) g/dL RDW Std Deviation 40.7 (36.4-46.3) fL RDW Coeff of [place] 12.1 (11.5-14.5) % Plt Count 214 (130-400) K/uL MPV 10.6 H (7.4-10.4) fL Immature Gran % (Auto) 0.3 % Neut % (Auto) 69.3 % Lymph % (Auto) 17.1 % [place] % (Auto) 11.3 % Eos % (Auto) 1.7 % Baso % (Auto) 0.3 % Immature Gran # (Auto) 0.02 (0.00-0.02) K/uL Neut # (Auto) 5.19 (1.4-6.5) K/uL Lymph # (Auto) 1.28 (1.2-3.4) K/uL [place] # (Auto) 0.85 H (0.11-0.59) K/uL Eos # (Auto) 0.13 (0-0.5) K/uL Baso # (Auto) 0.02 (0-0.2) K/uL Sodium 138 (136-145) mmol/L Potassium 3.4 L (3.5-5.1) mmol/L Chloride 107 (98-107) mmol/L Carbon Dioxide 26 (21-32) mmol/L Anion Gap 6.0 (3-11) BUN 13 (7-18) mg/dl Creatinine 0.93 (0.6-1.4) mg/dl Est Cr Clr Drug Dosing 78.8 ml/min Est GFR ( Amer) 111.3 Est GFR (Non-Af Amer) 96.1 BUN/Creatinine Ratio 13.7 (10-20) Glucose 95 (70-99) mg/dl Calcium 8.4 L (8.5-10.1) mg/dl Diagnostic Findings LUMBAR SPINE CT CT DOSE: 256.82 mGycm HISTORY: radicular pain right leg TECHNIQUE: Multiaxial CT images of the lumbar spine were performed and reformatted in the sagittal and coronal plane without the use of contrast. A dose lowering technique was utilized adhering to the principles of ALARA. COMPARISON: Abdomen and pelvis CT 11/23/2019. FINDINGS: No fracture or subluxation within the lumbar spine. The visualized sacrum is intact. Disc spaces are preserved. Paravertebral soft tissues are unremarkable. L1-L2: No significant central canal or neural foraminal narrowing. L2-L3: No significant central canal or neural foraminal narrowing. L3-L4: No significant central canal or neural foraminal narrowing. L4-L5: Small broad-based posterior disc bulge without significant central canal or neural foraminal narrowing. L5-S1: There is a small right paracentral focal disc protrusion best seen on axial image 243. This abuts and displaces the transiting right S1 nerve root. However, there is no significant central canal narrowing at this level. There is moderate right-sided neural foraminal narrowing. IMPRESSION: 1. No fractures of fixation within the lumbar spine. 2. A right paracentral focal disc protrusion at L5-S1 which abuts and slightly displaces the transiting right S1 nerve root. This also results in moderate right-sided neural foraminal narrowing. [place] GI series CLINICAL HISTORY: with GASTROGRAFIN via NGT, r/o gastric leak. Postop. The duodenal ulceration. COMPARISON STUDY: Abdomen and pelvis CT 11/23/2019. FLUOROSCOPY TIME: 1.7 minutes. 174 fluoroscopic images submitted. FINDINGS: Water-soluble contrast was injected through the indwelling nasogastric tube. Contrast fills the stomach and duodenum to the third portion. No extraluminal contrast to suggest a leak. There is no contrast within the indwelling drains. Midline skin gareth are noted. IMPRESSION: No extraluminal contrast to suggest a leak.
[2019-11-26] MEDS: D5W AND 1/2NSS + 20MEQ KCL 20 MEQ/1,000 ML BAG IV SCH (13:42)
[2019-11-26] MEDS ORDERED: POLYETHYLENE (MIRALAX) 17 GM PACK PO PRN (16:45)
[2019-11-26] MEDS ORDERED: Nursing to Pharmacy Communication ONE (16:48)
[2019-11-26] MEDS ORDERED: DOCUSATE SODIUM 100 MG CAP PO SCH (21:00)
[2019-11-26] MEDS: DOCUSATE SODIUM 100 MG CAP PO SCH (21:01)
[2019-11-27] MEDS: D5W AND 1/2NSS + 20MEQ KCL 20 MEQ/1,000 ML BAG IV SCH ×3 (01:04→23:49)
[2019-11-27] MEDS: PANTOprazole 40 MG in DEXTROSE 5% 100 ML IV SCH ×4 (04:14→19:56)
[2019-11-27] MEDS: PIPERACILLIN/TAZOBACTAM 3.375 GM in DEXTROSE 5% 100 ML IV SCH ×3 (05:21→21:01)
[2019-11-27 07:15] LABS: Creatinine Clr Calc Pharmacy 71.9 ml/min; Est GFR (African American) 99.6; Est GFR (Non-African American) 85.9
[2019-11-27] MEDS: ENOXAPARIN INJ 30 MG/0.3 ML SYR SQ SCH (09:18)
--- NOTE | 2019-11-27 10:48 | Surgery Progress Note ---
Date of Service November 27, 2019 Assessment & Plan (1) Perforated viscus: Doing well from the perforated ulcer standpoint Can advance to full liquid diet Encouraged ambulation from that standpoint (2) Right leg pain: To be evaluated by Dr. Rainey and will await his recommendations Clinically much improved however having very little to no pain Subjective Postoperative day #4 status post exploratory laparotomy with oversewing of duodenal ulcer perforation with Yfn patch Feels much better today Having less pain Passed flatus and had a bowel movement yesterday Upper GI results again noted Tolerated clear liquids Denies nausea and vomiting RAINA with serosanguineous drainage only Having much less leg pain Is able to stand without pain now Was able to ambulate in the hallway for 3 minutes without developing any discomfort at all Physical Exam Gastrointestinal (Abdomen): Inspection/Auscultation: + abdominal surgical incision (Clean, dry and intact); abdomen not distended Percussion/Palpation: abdomen soft; abdomen nontender Results & Data Vital Signs (Past 12 Hours) Vital Signs Temp Pulse Resp BP Pulse Ox 11/27/19 07:24 36.5 C 61 16 153/90 H 98 11/26/19 23:24 37.2 C 61 16 140/87 96
--- NOTE | 2019-11-27 10:59 | Orthopedic Consultation ---
Date of Consultation November 27, 2019 Assessment & Plan (1) Lumbar herniated disc: This time he seems to be improving appropriately. Is severe radicular pain has improved. Subsequently would not recommend any surgical intervention. We may consider consultation with interventional pain management as he may require an epidural injection. Present on Admission?: Yes History of Present Illness Reason for Consultation: Right leg pain Attending Physician: Slick Martino MD History of Present Illness This is a 49-year-old male that presents with abdominal ulcer. He underwent surgery for this. But he is also had concomitant severe right-sided leg pain consistent with radiculopathy. My exam with the patient today was with Dr. Hurtado who was the hand engraver. Patient states that his pain is involves the right leg extending into the lower calf. He gets occasional numbness tingling and cold sensation. It is improved over the past 3 days. He is now able to stand and ambulate the halls for several minutes before the pain becomes limiting. 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 He has no tension signs with bilateral straight leg raising. He does have evidence of a 4-5 right EHL compared to 5 5 on the left. Sensory symmetric and intact to cold and light touch. He was able to stand for me without evidence of antalgia. Results & Data ([facility]) Vital Signs (Past 12 Hours) Vital Signs Temp Pulse Resp BP Pulse Ox 11/27/19 07:24 36.5 C 61 16 153/90 H 98 11/26/19 23:24 37.2 C 61 16 140/87 96
[2019-11-27] MEDS ORDERED: COUGH DROP (SUGAR FREE) LOZ 24 LOZ/1 BOX BUCCAL ONE (19:35)
[2019-11-27] MEDS: DOCUSATE SODIUM 100 MG CAP PO SCH (20:56)
[2019-11-28] MEDS: PANTOprazole 40 MG in DEXTROSE 5% 100 ML IV SCH ×5 (01:01→19:12)
[2019-11-28] MEDS: PIPERACILLIN/TAZOBACTAM 3.375 GM in DEXTROSE 5% 100 ML IV SCH ×3 (04:49→21:31)
[2019-11-28] MEDS: ENOXAPARIN INJ 30 MG/0.3 ML SYR SQ SCH (08:39)
--- NOTE | 2019-11-28 10:34 | Surgery Progress Note ---
Date of Service November 28, 2019 Assessment & Plan (1) Perforated viscus: Tolerating clear liquid diets will advance to soft diet If tolerates can go home tomorrow Remove drains prior to discharge Can follow-up in the next week for suture removal Will need to be on Protonix twice a day for at least the next 3 months Consider EGD after that timeframe (2) Lumbar herniated disc: Pain has resolved Can see pain management post discharge for evaluation regarding possible epidural injection Subjective Postoperative day #5 exploratory laparotomy with oversewing Yfn perforated duodenal ulcer abdomen. Having very little pain Denies nausea vomiting Bowels are moving and passing flatus Tolerated full liquid diet RAINA drain with serosanguineous drainage Leg pain has completely resolved Physical Exam Gastrointestinal (Abdomen): Inspection/Auscultation: + abdominal surgical incision (Clean, dry and intact); abdomen not distended Percussion/Palpation: abdomen soft; abdomen nontender Results & Data Vital Signs (Past 12 Hours) Vital Signs Temp Pulse Resp BP Pulse Ox 11/28/19 08:22 36.4 C L 79 16 129/79 95 11/27/19 23:21 36.6 C 60 20 134/84 97
[2019-11-28] MEDS: D5W AND 1/2NSS + 20MEQ KCL 20 MEQ/1,000 ML BAG IV SCH ×2 (11:25→22:49)
[2019-11-28] MEDS: DOCUSATE SODIUM 100 MG CAP PO SCH (21:31)
[2019-11-29] MEDS: PANTOprazole 40 MG in DEXTROSE 5% 100 ML IV SCH ×3 (00:28→08:52)
[2019-11-29] MEDS: PIPERACILLIN/TAZOBACTAM 3.375 GM in DEXTROSE 5% 100 ML IV SCH (05:05)
[2019-11-29] MEDS: D5W AND 1/2NSS + 20MEQ KCL 20 MEQ/1,000 ML BAG IV SCH (08:54)
[2019-11-29] MEDS: ENOXAPARIN INJ 30 MG/0.3 ML SYR SQ SCH (08:54)
--- NOTE | 2019-11-29 11:37 | Discharge Summary ---
Date of Service November 29, 2019 Admission HPI Per Admitting Provider This is a 49-year-old male who presented to the emergency room with a complaint of abdominal pain. He was accompanied by his life partner. The patient speaks only Mandarin. The life partner speaks some Vietnamese. The interview exam and explanation were all performed with the use of the [employer] translation system. The patient developed the acute onset of abdominal pain at about 3:00 this morning. It was more in the upper abdomen and in the periumbilical region. He has never had pain like this before. He had nausea but did not vomit. He had no change in his bowel habits which consist of chronic constipation. He had no fever. The pain has persisted and increased in intensity. He has no previous history of upper GI disorders. He does not take antacids. He has not had any weight loss. 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 Discharge Exam Constitutional well developed and well nourished; no acute distress Respiratory normal respiratory effort; no respiratory distress and no labored breathing Gastrointestinal (Abdomen) Inspection/Auscultation: abdomen normal to inspection, + abdominal surgical incision (clean/dry/intact with gareth, pedro luis intact) and + abdominal surgical drain present (serous drainage); abdomen not distended Skin no rashes, warm and dry Psychiatric A+Ox3, euthymic affect Discharge Data Allergies Allergy/AdvReac Type Severity Reaction Status Date / Time No Known Allergies Allergy Unverified 11/23/19 04:52 Consultations 11/23/19 06:43 ED Decision to Admit Stat 11/26/19 13:06 Consult Orthopedic Surgery Routine 11/29/19 11:22 Burn CD for patient Routine Procedures Performed Operation Date: 11/23/19 09:00 Actual Procedures p Exploratory Laparotomy with oversewing of perforated duodenal ulcer, Yfn patch(Not Applicable) - Slick Martino MD Ordered Studies 11/23/19 05:10 CT abd pelvis wo con Urgent 11/24/19 04:23 US venous doppler LE RT Urgent 11/25/19 11:15 CT lumbar spine wo con Urgent 11/26/19 07:00 FL GI series Routine Hospital Course (1) Perforated viscus: Patient was taken to operating room for exploratory laparotomy by Dr. Martino. Patient found to have perforated duodenal ulcer. Ulcer was repaired primarily with sutures and grahm patch. Patient tolerated procedure well and was transferred to recovery then to medical/surgical floor for postoperative care. NGT to LIS, NPO, IV Zosyn, IV Fluids, IV Morphine, IV protonix drip, IV zofran were ordered. POD #1 NGT kept, pain controlled, complaining of right leg pain mostly. RAINA drain with serosanguineous output. Kept NPO. POD # 2 vital stable, pain controlled. NGT continued to suction and kept NPO. POD # 3, pain controlled, upper GI series showed no leak, NGT removed and started on sips of clears. Diet then was advanced slowly as tolerated. IV zosyn and IV Protonix was continued throughout stay. POD # 6 vitals stable, pain controlled, tolerated diet. Patient discharged home on POD # 6 in stable condition. (2) Lumbar herniated disc: Patient had a CT scan of lumbar spine without contrast which showed herniated disc in lumbar spine with compression of s1 nerve root. Dr. Rainey consulted, recommended outpatient follow-up for possible epidural injection. Pain continued to improve and resolve at time of discharge Follow up with Dr. Rainey as outpatient post discharge for evaluation regarding possible epidural injection Total Time Total Time Spent Total Time Spent (In Minutes): 45 Total Time Includes: Examination of the Patient, Discharge Planning and Medication Reconciliation Discharge Plan Discharge Items Patient Disposition: Home - Self-Care Reason For Visit: PERFOTATED DUODENAL ULCER Discharge Diagnosis: Perforated duodenal (small bowel) ulcer Activity: Per Instructions section Non-emergency contact: Surgeon Call non-emergency contact if: you have any medication questions, your symptoms worsen, your pain is not controlled, your pain is worsening, your pain is concerning for you, you have a fever, your temperature is above 101, your wound has increased redness, your wound has increased drainage and your wound pain has increased Follow-up/Referrals: Slick Martino MD [Physician] - (Will need follow-up next week with Dr. Lyn watson for staple removal and surgical follow-up. Please call office to get that scheduled next week. [phone] is the direct office number. Office is located at address above. [facility].) Rc Rainey DO [Surgeon] - (Follow-up with Dr. Rainey for your right leg pain and herniated disc in your lumbar spine) PCP,NO [Primary Care Provider] - Diet: Regular Addtl Attending Provider Instructions: Post-Surgical ~Discharge Instructions Activity Recommendations: - lifting limitation: (10 pounds for at least 6 weeks), - exercise/sex/sports limit: (nonstrenuous until cleared by surgeon), - driving or machine use limit: (none for 1 week, or until you are no longer having pain or taking narcotic pain medication), - Shower/bathe limit: (may shower , no submerging incision underwater for 2 weeks) Diet: - Resume previous diet - Avoid spicy foods, acidic foods, caffeine, soda products, tomato based products in excess SPECIAL CARE INSTRUCTIONS: - May shower. Let water run over area and pat dry. - Cover incision and drain site with dressing daily. - Surgical gareth will be removed in office next week. - Call the surgeon's office with any questions or concerns - - (ex. temperature higher than 101 degrees F, excessive bleeding or pain). MEDICATIONS: - Resume previous medications unless instructed otherwise by your surgeon. - Percocet 1 every 4 hours, as needed for pain - Avoid Ibuprofen/Motrin/Aleve products - May take extra strength Tylenol as needed for mild pain - 650 mg every 6 hours as needed for pain - You will need to take Protonix (antacid medication) twice a day for at least 3 months. - Recommend stool softener (Colace) daily while taking narcotic pain medication. FOLLOW UP VISIT: - please call the office to schedule a follow-up appointment with Dr. Martino next week for follow-up and staple removal. Office number - Call Dr. Rainey's office (Orthopedic/spine surgeon) for follow-up in regards to your back and chronic right leg pain. Pending Studies at Discharge: No Stand-Alone Forms: My [employer], Smoking Cessation Medications and DC Order Prescriptions: New oxycodone-acetaminophen [Percocet] 5-325 mg Tablet 1 tab PO Q4H PRN (Reason: pain) Qty: 18 RF: 0 docusate sodium 100 mg Capsule 100 mg PO HS Qty: 30 RF: 0 pantoprazole [Protonix] 40 mg tablet,delayed release (DR/EC) 40 mg PO BID Qty: 60 RF: 3 Continued multivitamin Tablet 1 tab PO DAILY RF: 0 Discharge Orders: Discharge Order (Routine); Ordered 11/29/19 Ordered By: Julita Aguilar Admission Data Admit Date/Time: 11/23/19 11:52 Attending Provider: Slick Martino Admit Provider: Slick Martino Primary Care Provider: PCP,NO Other Providers: Slick Martino ; Rc Rainey
== END 2019-11-29 12:45 | disposition home or self-care (01) | DRG 395 ==
LOC: ED 04:37 → OR 08:44 → 3E 11:52

== ENCOUNTER 2020-06-12 22:31 | Observation (INO) ==
--- NOTE | 2020-06-12 23:26 | Emergency Department Note ---
History of Present Illness General Chief complaint: Neuro Symptoms/Deficit Stated complaint: SUSPECTED SYNCOPE OR SEIZURE Time Seen by Provider: 06/12/20 22:46 Source: patient Mode of arrival: EMS Limitations: language barrier History of Present Illness This patient is a 50-year-old male who presents to the emergency department via EMS for evaluation of possible syncopal episode. Patient speaks Mandarin and translating service was used to obtain the history. Per EMS, the patient is an employee at a [employer] and was taking a break sitting in the back, when he was found unresponsive on the floor. Patient is not sure what happened and does not remember passing out or falling. He states that the last thing he remembered he was working, then he remembered waking up to EMS getting him into the ambulance. Per EMS, the patient was "staring off into space" when they arrived, but they are unsure if this was due to a postictal state or due to the language barrier. The patient does not recall feeling ill or lightheaded. He denies any recent illness or fevers. He reports some mild pain on the right side of the head, where he believes he may have hit his head. He otherwise denies headaches, neck pain/stiffness, chest pain, shortness of breath, dizziness or any other symptoms. Patient is healthy and takes probiotics for constipation, but no other medications. He denies any family history of cardiac disease or stroke. Patient denies any history of similar episodes. Home Medications Home Medications Medication Instructions Recorded Confirmed Type Lactobacillus acidophilus 10,000 mmu cells PO DAILY 06/12/20 06/12/20 History [Probiotic] Allergies Allergy/AdvReac Type Severity Reaction Status Date / Time No Known Allergies Allergy Verified 06/12/20 22:55 Past Med/Surg History Medical History Anxiety no meds Constipation Surgical History S/P exploratory laparotomy Family History (Updated 03/11/20 @ 13:56 by Glory Dolan RN) Other Family history unknown Social History Smoking Status: Never smoker Second Hand Exposure: No; Hx Alcohol Use: No Hx Substance Use: No Preferred Language: Mandarin [place] Communication Ability: Effective Dramatic Director Required: Yes Beliefs That Will Affect Care: Cultural Current Living Situation: Alone Current Living Situation Comment: Lives with roommate Feels Safe at Home: Yes Safety Concerns: Feels Safe At This Time Assistive Devices: None Review of Systems A total of 10 systems reviewed and were otherwise negative Physical Exam Vital Signs Vital Signs - 24 hr 06/12/20 22:40 06/12/20 23:00 06/12/20 23:45 Temperature 36.6 C Temperature Source Oral Pulse Rate 79 78 Pulse Rate from SpO2 Sensor 82 Respiratory Rate 18 19 Blood Pressure 154/93 H 141/95 H Blood Pressure Mean 113 108 Pulse Oximetry 97 98 98 Oxygen Delivery Method Room Air Room Air Sepsis Recent Fever Within 48 Hours No Sepsis New/Unexplained Change in Mental Status N/A Sepsis Action Taken by Nursing No Action Required 06/13/20 01:00 06/13/20 02:00 Temperature Temperature Source Pulse Rate 70 74 Pulse Rate from SpO2 Sensor 70 76 Respiratory Rate 20 18 Blood Pressure 118/86 138/87 Blood Pressure Mean 95 103 Pulse Oximetry 97 98 Oxygen Delivery Method Sepsis Recent Fever Within 48 Hours Sepsis New/Unexplained Change in Mental Status Sepsis Action Taken by Nursing VITALS: Vitals are noted on the nurse's note and reviewed by myself. Vital signs stable. GENERAL: This is a 50-year-old male, in no acute distress, nondiaphoretic, well- developed well-nourished. SKIN: There is a hematoma to the right parietal scalp. HEAD: Normocephalic atraumatic. EARS: External auditory canals clear, tympanic membranes pearly cannon without erythema or effusion bilaterally. No hemotympanum. EYES: Pupils equal round and reactive to light and accommodation. Extraocular movements intact. NOSE: No deformity or tenderness. There is no bleeding. MOUTH: Mucous membranes moist. Tonsils are not enlarged. Pharynx without erythema or exudate. NECK: Supple without nuchal rigidity. No lymphadenopathy. Cervical spine is nontender. HEART: Regular rate and rhythm without murmurs gallops or rubs. LUNGS: Clear to auscultation bilaterally without wheezes, rales or rhonchi. ABDOMEN: Positive bowel sounds x 4. Soft, nontender to palpation. MUSCULOSKELETAL: Full range of motion throughout. Strength 5/5 throughout. NEURO: Patient was alert and oriented to person place and time. No focal neurological deficits. Course Consultations Consultation #1: [facility] hospitalist Medical Decision Making Differential Diagnosis Vasovagal event, dehydration, infection, hypoglycemia, electrolyte abnormalities, cardiac sources, intracerebral event, pulmonary embolism, seizure, toxicologic, neurologic, as well as other pathologies. Home Medications Current Medication List: was personally reviewed by me Laboratory Data Attestation: I reviewed the patient's lab results. Result diagrams: 06/12/20 23:30 06/13/20 00:19 Lab Results 06/12/20 06/12/20 06/13/20 Range/Units 23:30 23: 00:19 WBC 5.67 (4.8-10.8) K/uL RBC 4.47 L (4.7-6.1) M/uL Hgb 13.7 L (14.0-18.0) g/dL Hct 41.3 L (42-52) % MCV 92.4 (80-100) fL MCH 30.6 (25-34) pg MCHC 33.2 (32-36) g/dL RDW Std Deviation 41.7 (36.4-46.3) fL RDW Coeff of Raven 12.6 (11.5-14.5) % Plt Count 136 (130-400) K/uL MPV 11.4 H (7.4-10.4) fL Immature Gran % (Auto) 0.4 % Neut % (Auto) 67.1 % Lymph % (Auto) 25.4 % Louisa % (Auto) 6.2 % Eos % (Auto) 0.9 % Baso % (Auto) 0.0 % Neut # (Auto) 3.81 (1.4-6.5) K/uL Lymph # (Auto) 1.44 (1.2-3.4) K/uL Louisa # (Auto) 0.35 (0.11-0.59) K/uL Eos # (Auto) 0.05 (0-0.5) K/uL Baso # (Auto) 0.00 (0-0.2) K/uL Immature Gran # (Auto) 0.02 (0.00-0.02) K/uL Sodium Cancelled 139 Potassium Cancelled 3.5 Chloride Cancelled 105 Carbon Dioxide Cancelled 30 Anion Gap Cancelled 4.0 BUN Cancelled 20 H Creatinine Cancelled 1.24 Est Cr Clr Drug Dosing Cancelled 62.5 Est GFR ( Amer) Cancelled 78.1 Est GFR (Non-Af Amer) Cancelled 67.4 BUN/Creatinine Ratio Cancelled 15.8 Glucose Cancelled 178 H Calcium Cancelled 8.6 Magnesium Cancelled 2.1 Total Bilirubin Cancelled 0.7 AST Cancelled 17 ALT Cancelled 15 Alkaline Phosphatase Cancelled 53 Troponin I Cancelled < 0.015 Total Protein Cancelled 7.3 Albumin Cancelled 3.5 Globulin Cancelled 3.8 Albumin/Globulin Ratio Cancelled 0.9 Imaging Data Attestation: I personally reviewed and interpreted this imaging study as follows: Radiologist's Impression: CT HEAD: The paranasal sinuses and mastoid air cells are normally aerated. There is no skull fracture or scalp hematoma. There is a normal gyral pattern of the brain. There is no mass lesion or midline shift. The cannon-white matter differentiation is maintained. The ventricles and CSF spaces are normal. There is no evidence of acute large vessel infarct or intracranial hemorrhage. Radiologist: Willard Barajas MD ECG Data Attestation: I personally reviewed and interpreted this ECG as follows: Indication: + syncope Rate (beats per minute): 77 Rhythm: + normal sinus ECG Intervals/blocks: + Normal QRS ECG [place]: + Normal ECG ST segments: + Normal ST segments Change: no significant change MDM Narrative Continuous ekg monitor tech: Order was placed for continuous ekg monitor tech. Patient was placed on the ekg monitor tech. Patient was noted to be in normal sinus rhythm at an initial rate of 79 bpm. The patient is a 50-year-old male who presents today for evaluation of a possible syncopal episode. Patient has no recollection of what happened, and there is concern that he had a syncopal episode or seizure. Labs were unremar kable, with no leukocytosis, significant anemia or concerning electrolyte abnormalities. Troponin was not elevated. EKG is unremarkable. Patient placed on the ekg monitor tech here with no arrhythmias. CT of the head was unremarkable. Given patient's unexplained syncopal event, I did recommend e valuation by the hospitalist for inpatient stay and patient was agreeable. Case discussed with the [facility] hospitalist service. Impression & Plan Syncope, Closed head injury Discharge Plan Visit Data Chief Complaint: Neuro Symptoms/Deficit Stated Complaint: SUSPECTED SYNCOPE OR SEIZURE ED Provider: Shane Montelongo ED Midlevel Provider: Radha Marie Discharge Problem: Syncope, Closed head injury Patient Disposition: Admitted As Inpatient Discharge Instructions Interventions: ED Discharge Assessment Last Done: 06/13/20 02:39 Discharge Problem: Syncope Qualifiers: Syncope type: unspecified Qualified Code(s): R55 - Syncope and collapse Closed head injury Qualifiers: Encounter type: initial encounter Qualified Code(s): S09.90XA - Unspecified injury of head, initial encounter
[2020-06-12 23:53] LABS: Eosinophils # (auto) 0.05 K/uL (0-0.5); Eosinophils % (auto) 0.9 %; Hematocrit (blood only) 41.3 % (42-52); Hemoglobin 13.7 g/dL (14.0-18.0); Immature Granulocytes # (auto) 0.02 K/uL (0.00-0.02); Immature Granulocytes % (auto) 0.4 %; Lymphocytes # (auto) 1.44 K/uL (1.2-3.4); Lymphocytes % (auto) 25.4 %; Mean Corpuscular Hemoglobin 30.6 pg (25-34); Mean Corpuscular Hgb Conc 33.2 g/dL (32-36); Mean Corpuscular Volume 92.4 fL (80-100); Mean Platelet Volume 11.4 fL (7.4-10.4); Monocytes # (auto) 0.35 K/uL (0.11-0.59); Monocytes % (auto) 6.2 %; Neutrophils # (auto) 3.81 K/uL (1.4-6.5); Neutrophils % (auto) 67.1 %; Platelet Count 136 K/uL (130-400); RDW Coefficient of Variation 12.6 % (11.5-14.5); RDW Standard Deviation 41.7 fL (36.4-46.3); Red Blood Count 4.47 M/uL (4.7-6.1); White Blood Count 5.67 K/uL (4.8-10.8)
[2020-06-13 00:53] LABS: Alanine Aminotransferase 15 U/L (12-78); Albumin Level 3.5 gm/dl (3.4-5.0); Aspartate Aminotransferase 17 U/L (15-37); BUN Creatinine Ratio 15.8 (10-20); Blood Urea Nitrogen 20 mg/dl (7-18); Calcium 8.6 mg/dl (8.5-10.1); Carbon Dioxide 30 mmol/L (21-32); Chloride 105 mmol/L (98-107); Creatinine Clr Calc Pharmacy 62.5 ml/min; Est GFR (African American) 78.1; Est GFR (Non-African American) 67.4; Glucose 178 mg/dl (70-99); Magnesium 2.1 mg/dl (1.8-2.4); Potassium 3.5 mmol/L (3.5-5.1); Sodium 139 mmol/L (136-145)
[2020-06-13 00:58] LABS: Albumin Globulin Ratio 0.9 (0.9-2); Alkaline Phosphatase 53 U/L (45-117); Bilirubin,Total 0.7 mg/dl (0.2-1); Globulin 3.8 gm/dl (2.5-4.0); Total Protein 7.3 gm/dl (6.4-8.2); Troponin I < 0.015 ng/ml (0-0.045)
--- NOTE | 2020-06-13 01:40 | History & Physical Report ---
Date of Service June 13, 2020 Assessment & Plan (1) Syncope: Admission and Anticipated Discharge Date Admission Date: Mr. Ortiz is a 50-year-old male who denies past medical history including cardiac history who presented by ambulance after he was found at work on the floor following an episode of syncope. 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 Syncopal episode Unclear etiology. Patient denies history of similar events, denies recent medication use, does not remember the event. He had stood up and was walking shortly before the episode suggesting potential orthostatic hypotension EKG normal on admission, patient without recurrent lightheadedness/dizziness/palpitations Admit to telemetry for monitoring Patient denies personal and family history of cardiac disease, syncope, and arrhythmia BMP without acute metabolic changes U tox pending No signs of infection Orthostatic vitals pending Occiput contusion Patient with mildly tender bruise at right upper occiput CThead with no intracranial pathology Patient neck nontender, is having no neck pain on movements. Defer C-spine imaging at this time, follow clinically Patient denies chronic medical problems Disposition: Admit to medical with telemetry DVT prophylaxis: Lovenox Diet: Regular CODE STATUS: Full code History of Present Illness Chief Complaint: Syncope Primary Care Provider: NO PCP Patient is a 50-year-old male with no past medical history of heart problems or syncope who presents following an episode of syncope after eating at [employer]. Mr. Ortiz reports that he was in his usual state of health when he was eating dinner with a coworker and his boss around 9:30 PM. He reports he felt well, and had not been sick prior. He had not felt lightheaded/dizzy. He had not been having any chest pain, chest pressure, or vision change. Reports that he stood up and was walking and the next thing he remembers is there is an ambulance nearby. He reports he does not remember falling, and does not remember passing out and estimates that he was out for 10 minutes but reports he does not remember the episode. He does not remember becoming lightheaded prior to falling. Following the fall he reports that he was not having any weakness, sensory change, chest pain, chest pressure, vision change, or abdominal pain. He did not have any involuntary urination/no bowel/bladder incontinence. EMS reports that he seems slightly confused when found with some concern for postictal, patient reports he felt normal after waking up and does not currently have any symptoms. He denies any personal or family history of similar symptoms. He does not take any medications. He denies tobacco, alcohol, recreational, and [id number] drug use. No recent herbal remedies or treatments. Medications: None Denies chronic medical problems Surgical history reviewed Social: Denies tobacco, alcohol, recreational drug use. Family history: Denies family history of cardiac disease, diabetes, syncope, stroke CODE STATUS: Full code, confirmed with patient Allergies Allergy/AdvReac Type Severity Reaction Status Date / Time No Known Allergies Allergy Verified 06/12/20 22:55 Home Medications Home Medications Medication Instructions Recorded Confirmed Type Probiotic 10,000 mmu cells PO DAILY 06/12/20 06/12/20 History Past Med/Surg History Medical History Anxiety no meds Constipation Surgical History S/P exploratory laparotomy Family History (Updated 03/11/20 @ 13:56 by Glory Dolan RN) Other Family history unknown Social History Smoking Status: Never smoker Second Hand Exposure: No; Hx Alcohol Use: No Hx Substance Use: No Preferred Language: Mandarin [place]an Communication Ability: Effective Communication Tools: IPad Front Edger Required: Yes Beliefs That Will Affect Care: Cultural Current Living Situation: Alone Current Living Situation Comment: Lives with roommate Feels Safe at Home: Yes Safety Concerns: Feels Safe At This Time Assistive Devices: None Review of Systems Review of Systems: All systems reviewed & are unremarkable except as noted in HPI & below Physical Exam Physical Exam: General: A&Ox3. NAD. Cooperative. HEENT: Normocephalic. 4 cm round contusion on right upper posterior occiput. Neuro as below. No neck tenderness. Pulm: CTAB A&P. -wheezes, -rales, -rhonchi. Symmetrical chest rise. No increase work of breathing. No respiratory distress. Cardiac: RRR, -mrg. Radial pulses intact and symmetrical. Abdominal: Nontender, nondistended, soft. BS present. CRANIAL NERVES: II: Pupils equal and reactive, no relative afferent pupillary defect, no VF cuts III, IV, : EOM intact, no gaze preference or deviation, no nystagmus. VII: no asymmetry, no nasolabial fold flattening VIII: normal hearing to speech. IX, X: normal palatal elevation, no uvular deviation XI: 5/5 head turn and 5/5 shoulder shrug bilaterally Normal to touch upper and lower extremities without deficit or asymmetry Results & Data Results & Data ([facility]) Vital Signs (Past 12 Hours) Vital Signs Temp Pulse Resp BP Pulse Ox 06/13/20 01:00 70 20 118/86 97 06/12/20 23:45 98 06/12/20 23:00 78 19 141/95 H 98 06/12/20 22:40 36.6 C 79 18 154/93 H 97 Supervising Physician Co-Signing Physician Notes Attending addendum: I have physically seen this patient, have supervised the medical residents activities, and agree with the H&P unless as otherwise noted. Assessment and Plan: Syncope- The patient will be admitted to telemetry for serial cardiac enzymes, serial EKG's, cardiac rhythm monitoring and a 2-D echocardiogram with Dopplers. Follow orthostatic vital signs. Hydration with IV fluids Main differential was orthostasis versus arrhythmia. Check urine drug screen Remaining orders and notations as noted Resident Activity Tracking Resident Involvement: Resident Care Provided Care Provided: Adult [facility] Medicine
[2020-06-13] MEDS ORDERED: ACETAMINOPHEN 325 MG TAB PO PRN (03:34)
--- NOTE | 2020-06-13 08:13 | Hospitalist Progress Note ---
Date of Service June 13, 2020 Assessment & Plan (1) Syncope: Mr. Ortiz is a 50-year-old male who denies past medical history including cardiac history who presented by ambulance after he was found at work on the floor following an episode of syncope. Patient is Mandarin speaking, HPI and di rukhsanaion assisted with the facilitation of iPad hemmer automatic. continue workup bmp, cbc ok. utox neg plan: orthostatics. continue tele. consider event monitor. r/o sz? Syncopal episode Unclear etiology. Patient denies history of similar events, denies recent medication use, does not remember the event. He had stood up and was walking shortly before the episode suggesting potential orthostatic hypotension EKG normal on admission, patient without recurrent lightheadedness/dizziness/palpitations Admit to telemetry for monitoring Patient denies personal and family history of cardiac disease, syncope, and arrhythmia BMP without acute metabolic changes U tox pending No signs of infection Orthostatic vitals pending Occiput contusion Patient with mildly tender bruise at right upper occiput CThead with no intracranial pathology Patient neck nontender, is having no neck pain on movements. Defer C-spine imaging at this time, follow clinically Patient denies chronic medical problems Disposition: Admit to medical with telemetry DVT prophylaxis: Lovenox Diet: Regular CODE STATUS: Full code (2) Contusion: Admission and Anticipated Discharge Date Admission Date: June 13, 2020 Subjective Denies any complaints. No f/c, n/v, constip diarr, cp, sob, abd pain, chu, diz ziness Patient Review of Systems Review of Systems: Constitutional: Denies fever, chills, weight change Eyes: Denies blurry vision, vision changes ENT: Denies sore throat, sinus pain Cardiovascular: Denies chest pain, palpitations Respiratory: Denies shortness of breath, cough, sputum production, difficulty breathing Gastrointestinal: Denies abdominal pain, nausea, vomiting, constipation, diarrhea Genitourinary: Denies urinary symptoms including dysuria Musculoskeletal: Denies weakness, muscle aches/pain, joint aches/pain Neurological: Denies headache, numbness, tingling, focal weakness Physical Exam Physical Exam: General: Grossly A&O. NAD. Cooperative. HEENT: Atraumatic, normocephalic. EOMI Pulm: CTAB. -wheezes, -rales, -rhonchi. No respiratory distress. Cardiac: RRR, -mrg. Radial pulses intact and symmetrical. Abdominal: Nontender, nondistended, soft. heart lungs ok. Neck exam some mild airway constriction on inspiration? no bruits. radial 2+. eomi perrl. normal peripheral abd soft nt no le edema cn 2-12 intact. normal finger to nose. patellar 2+. neg romberg. normal strength rom sensation. Results & Data Results & Data ([facility]) Vital Signs (Past 12 Hours) Vital Signs Temp Pulse Pulse Resp BP BP Pulse Ox 06/13/20 08:08 36.6 C 70 16 112/72 96 06/13/20 07:24 63 06/13/20 06:20 36.3 C L 97 06/13/20 03:30 36.9 C 18 132/77 97 06/13/20 02:00 74 18 138/87 98 06/13/20 01:00 70 20 118/86 97 06/12/20 23:45 98 06/12/20 23:00 78 19 141/95 H 98 06/12/20 22:40 36.6 C 79 18 154/93 H 97 Resident Activity Tracking Resident Involvement: Resident Care Provided Care Provided: Adult Hospital Medicine (1) Syncope Syncope type: unspecified Qualified Code(s): R55 - Syncope and collapse
--- NOTE | 2020-06-13 08:21 | Electrocardiogram Report ---
Test Reason : Blood Pressure : / mmHG Vent. Rate : 077 BPM Atrial Rate : 077 BPM P-R Int : 146 ms QRS Dur : 082 ms QT Int : 374 ms P-R-T Axes : 069 066 037 degrees QTc Int : 423 ms Poor data quality, interpretation may be adversely affected Normal sinus rhythm Normal ECG When compared with ECG of 23-NOV-2019 08:30, No significant change was found Confirmed by Bryan Shea ([id number]) on 06/13/2020 8:20:43 AM Referred By: REFERRED SELF Confirmed By:Bryan Shea
[2020-06-13 08:27] LABS: Appearance Urine Clear (Clear); Bacteria Urine Automated Negative (Negative); Bilirubin Urine Negative (Negative); Blood Urine Trace (Negative); Color Urine Yellow; Epithelial Cell Urine Auto 0-5 /lpf (0-5); Glucose Urine UA Negative (Negative); Ketones Urine Trace (Negative); Leukocyte Esterase Urine Negative (Negative); Nitrite Urine Negative (Negative); Protein Urine Negative (Negative); RBC Urine Automated 0-4 /hpf (0-4); Specific Gravity Urine 1.022 (1.000-1.030); Urobilinogen Urine Negative (Negative)
[2020-06-13 09:08] LABS: Amphetamines+Metham, Urine Neg (Neg); Barbiturates, Urine Neg (Neg); Benzodiazepine, Urine Neg (Neg); Cocaine, Urine Neg (Neg); MDMA (Ecstacy), Urine Neg (Neg); Methadone, Urine Neg (Neg); Opiate, Urine Neg (Neg); Phencyclidine, Urine Neg (Neg)
--- NOTE | 2020-06-13 09:18 | CT Scan Report ---
CT SCAN OF THE BRAIN WITHOUT IV CONTRAST CLINICAL HISTORY: Fall. Syncope. COMPARISON STUDY: No priors. TECHNIQUE: Unenhanced axial CT scan of the brain is performed from the vertex to the skull base. A d ose lowering technique was utilized adhering to the principles of ALARA. CT DOSE: 614.27 mGy.cm FINDINGS: Brain parenchyma: The brain parenchyma is normal in appearance. There is no hemorrhage, mass effect, or evidence of acute territorial ischemia by CT criteria. Lezama-white matter differentiation is preser renetta. No extra-axial fluid collection is seen. Ventricles, sulci, cisterns: Normal in configuration. Intracranial vasculature: The visualized intracranial vasculature at the skull base is normal in appe arance. Calvarium: No depressed calvarial fracture is identified. Soft tissues: There is a high right parietal scalp contusion. Sinuses and mastoids: There is opacification of the right anterior ethmoid sinus. The remaining visua lized paranasal sinuses are clear. The mastoid air cells are well pneumatized. Orbits: The bony orbits are grossly intact. IMPRESSION: No acute intracranial abnormality. ACT 112: Negative or not required by law. Electronically signed by: Stanley Cho M.D. 06/13/2020 9:17 AM
--- NOTE | 2020-06-13 16:27 | Discharge Summary ---
Date of Service June 13, 2020 Admission HPI Per Admitting Provider Patient is a 50-year-old male with no past medical history of heart problems or syncope who presents following an episode of syncope after eating at [employer]. Mr. Ortiz reports that he was in his usual state of health when he was eating dinner with a coworker and his boss around 9:30 PM. He reports he felt well, and had not been sick prior. He had not felt lightheaded/dizzy. He had not been having any chest pain, chest pressure, or vision change. Reports that he stood up and was walking and the next thing he remembers is there is an ambulance nearby. He reports he does not remember falling, and does not re member passing out and estimates that he was out for 10 minutes but reports he does not remember the episode. He does not remember becoming lightheaded prior to falling. Following the fall he reports that he was not having any weakness, sensory change, chest pain, chest pressure, vision change, or abdominal pain. He did not have any involuntary urination/no bowel/bladder incontinence. EMS reports that he seems slightly confused when found with some concern for postictal, patient reports he felt normal after waking up and does not currently have any symptoms. He denies any personal or family history of similar symptoms. He does not take any medications. He denies tobacco, alcohol, recreational, and nxfo-qme-grakwce drug use. No recent herbal remedies or treatments. Medications: None Denies chronic medical problems Surgical history reviewed Social: Denies tobacco, alcohol, recreational drug use. Family history: Denies family history of cardiac disease, diabetes, syncope, stroke CODE STATUS: Full code, confirmed with patient Principal Diagnosis syncope, probable concussion Discharge Exam aaox3 pleasant nad heent nc at mmm breathing unlabored no accessory muscles good effort skin no rashes no pallor or icterus neuro no focal deficits ekg nsr no arrythmia no problems noted on monitor labs noted - Cr higher than typical baseline CT head OK Discharge Data Allergies Allergy/AdvReac Type Severity Reaction Status Date / Time No Known Allergies Allergy Verified 06/12/20 22:55 Consultations 06/13/20 01:45 ED Decision to Admit Stat Ordered Studies 06/12/20 23:19 CT head/brain wo con Urgent Hospital Course (1) Syncope: presented with syncope - HPI fairly sparse as he doesn't really recall the event well/time period surrounding the event - basically knows that he went to get up and then was being brought to the hospital in an ambulance. does know that he hit his head -no risks for rhythm issues, baseline EKG and monitoring reassuring -no previous sx and no ongoing sx -likely does not remember any prodrome as i suspect he also has concussion with retrograde amnesia due to head impact during the event -almost certainly vasoactive mechanism of syncope - probably orthostatic with an element of dehydration (given circumstances known of the situation and labs showing higher than baseline #'s) -encouraged to drink ~60-80oz fluid daily -safe/stable for home, PCP f/u concussion -no further headaches/confusion -does not engage in contact sports or other high risk activities -CT head negative, appears that sx have resolved - but will be following up w PCP this week - to eval/manage further should headaches recur Total Time Total Time Spent Total Time Spent (In Minutes): <30 Discharge Plan Discharge Items Patient Disposition: Home - Self-Care Reason For Visit: SYNCOPE Discharge Diagnosis: syncope and contusion Activity: Per Instructions section Non-emergency contact: Primary Care Provider Call non-emergency contact if: you have any medication questions, your symptoms worsen and you have a fever Follow-up/Referrals: PCP,NO [Primary Care Provider] - Diet: Regular Addtl Attending Provider Instructions: Hi Mr. Ortiz. You were admitted to [facility] [address] because you had passed out while on break at work. You stated that this has never happened before and you have no personal or family history of heart problems or seizure problems. Your electrocardiogram (looks at electrical heart rhythm), labwork (blood counts and electrolytes) looked normal. We checked your blood pressure standing vs. lying down and there were no abnormalities. You hit the back of your head when you passed out and fell. You have a bruise in that area, but there is no skull fracture. Your head CT scan did not show any problems with your brain or any brain bleeding. The most likely cause is from dehydration and/or a positional response from standing up too quickly. If you have headache, you can take over the counter Tylenol (follow directions on box), not exceeding 3 grams in a day. If you start having worsened headache or difficulty with thinking, please let your doctor know. Please follow up with a primary care doctor in 1 week who may then do more workup regarding this episode of passing out. I have offered to make this appointment for you, but you have declined. You stated that you have a PCP in [place]. If you develop any new fever, confusion, severe headache, blurry vision, shortness of breath or vomiting, or any other concerning symptoms please contact a doctor and if severe, call 911. Pending Studies at Discharge: No Stand-Alone Forms: [facility], Smoking Cessation Medications and DC Order Prescriptions: Continued Probiotic 10 billion cell Capsule 10,000 mmu cells PO DAILY RF: 0 Discharge Orders: Discharge Order (Routine); Ordered 06/13/20 Ordered By: Jean Carlos Araya Admission Data Admit Date/Time: 06/13/20 02:06 Attending Provider: Gray Hernandez Admit Provider: Stuart Christina Primary Care Provider: PCP,NO Other Providers: Taran Ward Lawrence Other Interventions: Discharge Summary Assessment (RN) Last Done: 06/13/20 13:05 Coding Level of Care Code 16816 OBS Care - Discharge Diagnoses Syncope R55 Syncope type: unspecified
--- NOTE | 2020-06-13 21:32 | Billing Data ---
Date of Service June 13, 2020 Coding Level of Care Code 92373 OBS Care - Level 3
== END 2020-06-13 13:36 | disposition home or self-care (01) ==
LOC: 2N 22:31 → ED 22:31 → SUATTDRO 06-13 02:06 → 2N 06-13 02:39